=== PATIENT | female | born 1975 | race Caucasian/White ===

== ENCOUNTER 2017-11-05 20:47 | Emergency (ER) | payer OTHER ==
[~2017-11-05] VITALS: Ht 172.7 cm; Wt 74.8 kg
--- NOTE | 2017-11-05 20:55 | NUR ---
BB RA78 C/O GLF W/ POSSIBLE RIGHT SHOULDER DISLOCATION. PT REPORTS LANDED ON A COFFEE TABLE AND HIT HER SHOULDER. REPORTS PAIN. DENIES HEAD INJURY/ TRAUMA, NO LOC. VSS. PT AAOX4. SAFETY AND COMFORT MEASURES PROVIDED. WAITING FOR MD LAGUNA. WILL MONITOR.
[2017-11-05] MEDS ORDERED: ONDANSETRON 4 MG TAB.RAPDIS ONE (21:20)
[2017-11-05] MEDS ORDERED: KETOROLAC TROMETHAMINE INJ 30 MG/ML VIAL ONE (21:20)
[2017-11-05] MEDS ORDERED: HYDROCODONE/APAP 5/325MG 1 EACH TABLET ONE (21:20)
--- NOTE | 2017-11-05 21:25 | NUR ---
PT TAKEN TO XRAY.
[2017-11-05] MEDS ORDERED: HYDROCODONE/APAP 5/325MG 1 EACH TABLET PO ONE (21:30)
[2017-11-05] MEDS ORDERED: KETOROLAC TROMETHAMINE INJ 60 MG/2 ML VIAL IM ONE (21:30)
[2017-11-05] MEDS ORDERED: ONDANSETRON 4 MG TAB.RAPDIS SL ONE (21:30)
--- NOTE | 2017-11-05 22:19 | NUR ---
ASSUMED D/C CARE ONLY AT THIS TIME ON BEHALF OF PRIMARY NURSE SHADE. Patient discharged to home in stable condition. Written and verbal after care instructions given. Patient verbalizes understanding of instruction. RT ARM SLING IN PLACE. CMS INTACT. Ambulatory with a steady gait
[2017-11-05 22:22] VITALS: BP 112/75
== END 2017-11-05 22:23 | disposition home or self-care (01) ==
LOC: ER 20:49
DX: R07.81 Pleurodynia (principal); M25.511 Pain in right shoulder; F41.9 Anxiety disorder, unspecified; W01.0XXA Fall on same level from slipping, tripping and stumbling without subsequent striking against object, initial encounter; Y93.89 Activity, other specified; Y92.89 Other specified places as the place of occurrence of the external cause; Y99.8 Other external cause status
CPT/HCPCS: 71100; 73030; 96372; 99284; A4606; J1885; Q0162; Z7610